=== PATIENT | male | born 1995 | race Caucasian/White ===

== ENCOUNTER 2018-05-19 12:54 | Emergency (ER) | payer SELFPAY ==
[2018-05-19] MEDS ORDERED: Diphtheria,Pertussis(Acell),Tetanus Vaccine 0.5 ML Syringe IM ONE (13:02)
--- NOTE | 2018-05-19 13:09 | EDM.PDOC ---
ED HPI GENERAL MEDICAL PROBLEM - General Chief Complaint: Upper Extremity Injury/Pain Stated Complaint: INJURY FINGER Time Seen by Provider: 05/19/18 12:59 Source of Information: Reports: Patient History Limitations: Reports: No Limitations - History of Present Illness INITIAL COMMENTS - FREE TEXT/NARRATIVE: HISTORY AND PHYSICAL: History of present illness: Patient is a 22-year-old male who presents to the emergency room today with complaints of a right thumb injury resulting in a laceration. Patient reports he was working with some equipment when it had fallen, crushing the right thumb and resulting in a laceration to the mid finger. Sure of his last tetanus vaccine. Denies any other extremity involvement. Review of systems: As per history of present illness and below otherwise all systems reviewed and negative. Past medical history: As per history of present illness and as reviewed below otherwise noncontributory. Surgical history: As per history of present illness and as reviewed below otherwise noncontributory. Social history: No reported history of drug or alcohol abuse. Family history: As per history of present illness and as reviewed below otherwise noncontributory. Physical exam: General: All developed and well-nourished 22-year-old male. Alert and oriented. Nontoxic appearing and in no acute distress. HEENT: Atraumatic, normocephalic, pupils equal and reactive bilaterally, negative for conjunctival pallor or scleral icterus, mucous membranes moist, throat clear, neck supple, nontender, trachea midline. No drooling or trismus noted. No meningeal signs Lungs: Clear to auscultation, breath sounds equal bilaterally, chest nontender. Heart: S1S2, regular rate and rhythm without overt murmur Abdomen: Soft, nondistended, nontender. Negative for masses or hepatosplenomegaly. Negative for costovertebral tenderness. Pelvis: Stable nontender. Genitourinary: Deferred. Rectal: Deferred. Skin: 3cm laceration across the right mid thumb. Otherwise skin is intact, warm , dry. No lesions or rashes noted. Extremities: Crush injury of the right thumb, see skin detail for laceration note. Good flexion and extension of the affected thumb but no tendon involvement , Refill less than 3 seconds. Strong radial pulses. Neurovascular unremarkable. Neuro: Awake, alert, oriented. Cranial nerves II through XII unremarkable. Cerebellum unremarkable. Motor and sensory unremarkable throughout. Exam nonfocal. Notes: Tetanus is current. Area was cleansed with chlorhexidine. 1% lidocaine was used to anesthetize the area. Usual and customary procedures were used for sutures. 4 -0 nylon, #6 interrupted sutures applied. Patient tolerated well. Bacitracin nonstick dressing applied. Signs and symptoms that would prompt him to return to the emergency room were reviewed and discussed. Patient voices understanding and is agreeable to plan of care. Denies any further questions or concerns at this time. Diagnostics: Xray Therapeutics: Wound care, 1% lidocaine, nonstick dressing, spoon splint Prescription: Tramadol PRN (#15) Impression: Crush injury, right thumb Laceration Plan: 1. Keep the skin clean and dry. Continue to monitor for signs of infection. Sutures to be removed in 7-10 days. 2. Tylenol and/or ibuprofen as needed for pain management. Tramadol for moderate to severe pain. Does cause sedation, so do not drive with this medication. 3. Follow-up with Dr. Leone, Hand Surgeon, in the next 1-2 days. Return to the ED as needed and as discussed. Definitive disposition and diagnosis as appropriate pending reevaluation and review of above. Onset: Today Right 1-Thumb Pain Score (Numeric/FACES): 5 - Related Data Allergies Allergy/AdvReac Type Severity Reaction Status Date / Time No Known Allergies Allergy Verified 05/19/18 13:04 Home Meds: Home Meds traMADol [Ultram] 50 mg PO Q4H PRN #15 tab 05/19/18 [Rx] Past Medical History - Past Health History Medical/Surgical History: Denies Medical/Surgical History Review of Systems - Review of Systems Review Of Systems: ROS reveals no pertinent complaints other than HPI. ED EXAM, GENERAL - Physical Exam Exam: See Below (See dictation) ED TRAUMA EXTREMITY PROCEDURES - Laceration/Wound Repair right thumb Lac/Wound Length In cm: 3 Appearance: Linear, Clean Distal NVT: Neuro & Vascular Intact, No Tendon Injury Local Anesthesia - Lidocaine (Xylocaine): 1% Plain Local Anesthetic Volume: 3cc Skin Prep: Chlorhexidine (Hibiciens), Saline, Sterile Drape Saline Irrigation (cc's): 20 Exploration/Debridement/Repair: Wound Explored, In a Bloodless Field, No Foreign Material Found Closed With: Sutures Suture Size: 4-0 # of Sutures: 6 Suture Type: Nylon Sterile Dressing Applied: Provider Tetanus Status Addressed: Yes Complications: No Course - Vital Signs Last Recorded V/S: Last Vital Signs Temp 97.6 F 05/19/18 13:00 Pulse 89 05/19/18 13:00 Resp 16 05/19/18 13:00 BP 109/86 05/19/18 13:00 Pulse Ox 99 05/19/18 13:00 - Orders/Labs/Meds Orders: Active Orders 24 hr Category Date Time Status Communication Order [RC] STAT Care 05/19/18 13:51 Active Vaccines to be Administered [RC] PER UNIT ROUTINE Care 05/19/18 13:03 Active Meds: Medications Discontinued Medications Generic Name Dose Route Start Last Admin Trade Name Freq PRN Reason Stop Dose Admin Bacitracin 1 dose 05/19/18 13:51 05/19/18 14:09 Bacitracin Oint 1 Gm TOP 05/19/18 13:52 1 dose ONETIME ONE Administration Diphtheria/Tetanus/Acell Pertussis 0.5 ml 05/19/18 13:02 05/19/18 13:28 Adacel IM 05/19/18 13:03 0.5 ml .ONCE ONE Administration Lidocaine HCl 5 ml 05/19/18 13:02 05/19/18 14:09 Xylocaine-Mpf 1% INJECT 05/19/18 13:03 5 ml ONETIME ONE Administration Departure - Departure Time of Disposition: 13:52 Disposition: Home, Self-Care 01 Clinical Impression: Laceration, Crushing injury of finger of right hand - Discharge Information Prescriptions: traMADol [Ultram] 50 mg PO Q4H PRN #15 tab PRN Reason: Pain Instructions: Laceration Care, Adult, Crush Injury of the Hand, [id number] Referrals: PCP,None [Primary Care Provider] - Forms: ED Department Discharge Additional Instructions: The following information is given to patients seen in the emergency department who are being discharged to home. This information is to outline your options for follow-up care. We provide all patients seen in our emergency department with a follow-up referral. The need for follow-up, as well as the timing and circumstances, are variable depending upon the specifics of your emergency department visit. If you don't have a primary care physician on staff, we will provide you with a referral. We always advise you to contact your personal physician following an emergency department visit to inform them of the circumstance of the visit and for follow-up with them and/or the need for any referrals to a consulting specialist. The emergency department will also refer you to a specialist when appropriate. This referral assures that you have the opportunity for follow-up care with a specialist. All of these measure are taken in an effort to provide you with optimal care, which includes your follow-up. Under all circumstances we always encourage you to contact your private physician who remains a resource for coordinating your care. When calling for follow-up care, please make the office aware that this follow-up is from your recent emergency room visit. If for any reason you are refused follow-up, please contact the [facility] Emergency Department at and asked to speak to the emergency department charge nurse. [facility] [address] [place] [id number] [facility] - Plastic Surgery Professional Building [address] [place] [address], [address] [place] [address] 1. Keep the skin clean and dry. Continue to monitor for signs of infection. Sutures to be removed in 7-10 days. 2. Tylenol and/or ibuprofen as needed for pain management. Tramadol for moderate to severe pain. Does cause sedation, so do not drive with this medication. 3. Follow-up with Dr. Leone, Hand Surgeon, in the next 1-2 days. Return to the ED as needed and as discussed. - My Orders Last 24 Hours: My Active Orders 05/19/18 13:03 Vaccines to be Administered [RC] PER UNIT ROUTINE 05/19/18 13:51 Communication Order [RC] STAT - Assessment/Plan Last 24 Hours: My Active Orders 05/19/18 13:03 Vaccines to be Administered [RC] PER UNIT ROUTINE 05/19/18 13:51 Communication Order [RC] STAT
[2018-05-19] MEDS ORDERED: Bacitracin Oint 1 GM U/D Packet TOP ONE (13:51)
--- NOTE | 2018-05-19 13:51 | CR ---
EXAMINATION: Right thumb HISTORY: Crush injury COMPARISON: None TECHNIQUE: 3 views FINDINGS/IMPRESSION: There is no acute osseous abnormality, dislocation, or fracture. Bone mineraliza tion and joint spaces are preserved. Mild soft tissue swelling likely laceration overlying the mid fi rst digit.
== END 2018-05-19 14:16 | disposition home or self-care (01) ==
LOC: MW.ED 12:54
DX: S67.01XA Crushing injury of right thumb, initial encounter (principal); S61.011A Laceration without foreign body of right thumb without damage to nail, initial encounter; Z23 Encounter for immunization; W31.9XXA Contact with unspecified machinery, initial encounter; Y92.69 Other specified industrial and construction area as the place of occurrence of the external cause; Y99.0 Civilian activity done for income or pay
CPT/HCPCS: 73140-26-F5; 73140-F5; 90471; 90715; 99283-25